=== PATIENT | male | born 2000 | race Caucasian/White ===

== ENCOUNTER 2023-10-10 03:08 | Emergency (ER) | payer MEDICAID ==
[~2023-10-10] VITALS: Ht 165.1 cm; Wt 67.6 kg
[2023-10-10 03:14] VITALS: BP_SYST 163; PULSE 101; RESP 18; TEMP 98.3; O2SAT 96
== END 2023-10-10 04:11 | disposition home or self-care (01) ==
LOC: SED 03:08
DX: S60.221A Contusion of right hand, initial encounter (principal); W22.01XA Walked into wall, initial encounter; Y93.89 Activity, other specified; Y92.89 Other specified places as the place of occurrence of the external cause; Y99.8 Other external cause status
CPT/HCPCS: 99283

== ENCOUNTER 2023-10-13 11:59 | Emergency (ER) | payer MEDICAID ==
[~2023-10-13] VITALS: Ht 160 cm; Wt 59.9 kg
[2023-10-13 12:40] VITALS: BP_SYST 114; PULSE 85; RESP 18; TEMP 98.3; O2SAT 98
[2023-10-13 14:20] VITALS: BP_SYST 114; PULSE 85; RESP 18; TEMP 98.3; O2SAT 98
== END 2023-10-13 14:20 | disposition home or self-care (01) ==
LOC: SED 11:59
DX: S62.330A Displaced fracture of neck of second metacarpal bone, right hand, initial encounter for closed fracture (principal); X58.XXXA Exposure to other specified factors, initial encounter; Y93.71 Activity, boxing; Y92.89 Other specified places as the place of occurrence of the external cause; Y99.8 Other external cause status
CPT/HCPCS: 99283

== ENCOUNTER 2023-10-20 11:58 | Emergency (ER) | payer MEDICAID ==
[~2023-10-20] VITALS: Ht 170.2 cm; Wt 63.5 kg
[2023-10-20 12:00] VITALS: BP_SYST 140; PULSE 83; RESP 20; TEMP 98.2; O2SAT 98
[2023-10-20] MEDS ORDERED: TRAM50TA2 PO (13:22)
[2023-10-20] MEDS ORDERED: HYDR-3927 PO (13:22)
[2023-10-20] MEDS ORDERED: IBUP-1971 PO (13:22)
[2023-10-20 15:47] VITALS: BP_SYST 140; PULSE 83; RESP 20; TEMP 98.2; O2SAT 98
== END 2023-10-20 14:25 | disposition home or self-care (01) ==
LOC: SED 11:58
DX: S62.330A Displaced fracture of neck of second metacarpal bone, right hand, initial encounter for closed fracture (principal); Z79.899 Other long term (current) drug therapy; X58.XXXA Exposure to other specified factors, initial encounter; Y93.89 Activity, other specified; Y92.89 Other specified places as the place of occurrence of the external cause; Y99.8 Other external cause status
CPT/HCPCS: 99283